=== PATIENT | male | born 1965 | race Caucasian/White ===

== ENCOUNTER 2023-09-24 10:37 | Emergency (ER) | payer OTHER, SELFPAY ==
[2023-09-24 10:55] VITALS: BP 121/72; PULSE 84; RESP 18; TEMP 36.4; O2SAT 96; BMI 27.4
== END 2023-09-24 19:55 | disposition left against medical advice (07) ==
PROVIDERS: Emergency Provider Emergency Medicine; PCP Internal Medicine
DX: R21 Rash and other nonspecific skin eruption (principal); R10.13 Epigastric pain
CPT/HCPCS: 36415; 80048; 80076; 83690; 85025; 99281; 99283

== ENCOUNTER 2025-06-15 09:11 | Outpatient (AMB) | payer MEDICARE, SELFPAY ==
--- OUTSIDE RECORDS SUMMARY | 2025-06-09 11:28 | XMS_ITS | Encounter Summary ---
Author Organization [place] [address] Care Team Providers Care Matrix Plater Name Role Phone Michael Caldwell MD Primary Care Provider [phone] Encounter Details Date Type Department Care Team (Latest Contact Info) Description 06/09/2025 11:28 AM EDT - 06/09/2025 11:59 PM EDT Hospital Encounter XRAY - [facility] [address] [place] [address] Posterior left knee pain Discharge Disposition: Home or Self Care Social History Tobacco Use Types Packs/Day Years Used Date Smoking Tobacco: Never Smokeless Tobacco: Never Alcohol Use Standard Drinks/Week Comments Not Currently 0 (1 standard drink = 0.6 oz pur e alcohol) Housing Instability Answer Date Recorde d Are you worried that in the next 2 months you may not have stable housing? No 12/08/2024 Food Access & Nutrition Answer Date Rec orded Do you have access to a vari ety of food including fruits and vegetables? No 12/08/2024 Access to Healthcare Answer Date Record ed Within the last 3 months, ho w many times did you visit the emergency department for your medical care? 1 12/08/2024 Health Literacy Answer Date Recorded How often do you need to hav e someone help you when you read instructions, pamphlets, or other written material from your doctor or pharmacy? Always 12/08/2024 Caregiver: How often do you need to have someone help you when you read instructions, pamphlets, or other written material from your doctor or pharmacy? Not on file 12/08/2024 Financial Risk Answer Date Recorded How hard is it for you to pa y for the very basics like food, housing, medical care, and air conditioning / heating? Somewhat hard 12/08/2024 Transportation Answer Date Recorded Has the lack of transportati on kept you from meetings, work, or from getting things needed for daily living? No 5 Has the lack of transportati on kept you from medical appointments or from getting medications? No 12/08/2024 Social Isolation Answer Date Recorded How often do you feel lonely or isolated from th ose around you? Rarely 12/08/2024 Food Risk Answer Date Recorded Within the past 12 months we worried whether our food would run out before we got money to buy more. Sometimes true 025 Within the past 12 months th e food we bought just didn't last and we didn't have money to get more. Never true 12/08/2024 Dependent Care Answer Date Recorded Do you need help finding or paying for care for your loved ones. For example, children's zoo caretaker or elderly care for an older adult? Yes 12/08/2024 Education Answer Date Recorded Do you think completing more education or training, like finishing a GED, going to college, or learning a trade, would be helpful for you? N/A 12/08/2024 Employment and Income Answer Date Recor ded During the last four weeks, have you been actively looking for work? No 12/08/2024 Living Situation Answer Date Recorded What is your living situation? 0 12/08/2024 Sex and Gender Information Value Date Recorded Sex Assigned at Male 12/08/2024 11:10 AM EDT Legal Sex Male 9:25 AM EST Gender Identity Male 12/08/2024 11:10 AM EDT Sexual Orientation Straight 12/08/2024 11 :10 AM EDT documented as of this encounter Medications at Time of Discharge atorvastatin (LIPITOR) 10 mg tablet Take 1 tablet (10 mg total) by mouth at bedtime. 90 each 1 06/09/2025 blood-glucose meter kit Use daily or as directed for monitoring of diabetes. 1 each 02/23/2025 diclofenac (VOLTAREN) 1 % topical gel Apply 4 gram four times daily to affected joint 100 g 06/09/2025 diclofenac (VOLTAREN) 50 mg EC tablet Take 1 tablet (50 mg total) by mouth 3 (three) times a day. Do not crush, chew, or split. 28 tablet 04/01/2025 meloxicam (MOBIC) 15 mg tablet Take 1 tablet (15 mg total) by mouth 1 (one) time each day. 30 tablet 1 04/25/2025 documented as of this encounter Discharge Disposition Disposition Code Departure Means Destination Home or Self Care documented in this encounter Plan of Treatment Upcoming Encounters Date Type Department Care Team (Late st Contact Info) Description 06/29/2025 9:45 AM EDT Office Visit General Surgery - [place] [facility] [address] [place] [phone] Jeremy Palmer, 175 [facility] [address] [place] [address] 08/03/2025 9:50 AM EST Office Visit Gastroenterology [facility] 175 [facility] 175 [facility] [address] [place] [address] Kate Moreno PA 175 [facility] [address] [place] [address] 12/12/2025 9:00 AM EDT Office Visit Adult Medicine [address] [phone] Michael Caldwell MD [address] [place] [address] Scheduled Procedures Name Priority Associated Diagnoses Date/Ti me REPAIR HERNIA INGUINAL ROBOT Recurrent right inguinal hernia documented as of this encounter Procedures Procedure Name Priority Date/Time Associated Diagnosis Comments XR KNEE 4+ VIEWS LEFT Routine 06/09/2025 11:35 AM EDT Posterior left knee pain documented in this encounter Results * XR Knee 4+ Views Left (06/09/2025 11:35 AM EDT) Anatomical Region Laterality Modality Lower Extremities, Knee Left Radiogra phic Imaging 06/09/2025 5:37 PM EDT Impressions 06/09/2025 5:39 PM EDT Very mild degenerative changes. -------- FINAL REPORT -------- Dictated By: Rachele Huntley Dictated Date: 06/09/2025 17:37 ET Assigned Physician: Rachele Huntley Reviewed and Electronically Signed By: Rachele Huntley Signed Date: 06/09/2025 17:39 ET Workstation ID: [id number] Transcribed By: Self Edit Transcribed Date: 06/09/2025 17:37 ET Narrative 06/09/2025 5:39 PM EDT EXAM: Left knee x-ray HISTORY: Posterior left knee pain. COMPARISON: 04/11/2014 VIEWS: 4 views performed, AP and tunnel views performed weightbearing. FINDINGS: Very mild tricompartment joint space narrowing. Minimal posterior patellar spurring. Spurring of the tibial spines. No acute fracture or malalignment detected. No destructive bone lesion. No significant joint effusion. Procedure Note Rachele Huntley MD - 06/09/2025 EXAM: Left knee x-ray HISTORY: Posterior left knee pain. COMPARISON: 04/11/2014 VIEWS: 4 views performed, AP and tunnel views performed weightbearing. FINDINGS: Very mild tricompartment joint space narrowing. Minimal posterior patellarspurring. Spurring of the tibial spines. No acute fracture or malalignmentdetected. No destructive bone lesion. No significant joint effusion. IMPRESSION: Very mild degenerative changes. -------- FINAL REPORT -------- Dictated By: Rachele Huntley Dictated Date: 06/09/2025 17:37 ET Assigned Physician: Rachele Huntley Reviewed and Electronically Signed By: Rachele Huntley Signed Date: 06/09/2025 17:39 ET Workstation ID: [id number] Transcribed By: Self Edit Transcribed Date: 06/09/2025 17:37 ET Andrew ALVAREZ IMG XR PROCEDURES Final Result documented in this encounter Visit Diagnoses Diagnosis Posterior left knee pain documented in this encounter Additional Health Concerns Assessment Noted Time PHQ-9 Depression Total Score: 1 12/09/19 25 11:17 AM EDT documented as of this encounter Care Teams Matrix Plater Relationship Specialty Start Date End Date Michael Caldwell MD [address] [place] [phone] PCP - General Internal Medicine 11/22/15 documented as of this encounter
[2025-06-15 09:15] VITALS: BMI 26.3
--- NOTE | 2025-06-15 09:15 | MHC.AMNUTRGE ---
VS Expanded 06/15/25 09:15 Height 5 ft 6 in Weight 163 lb 2.273 oz BMI 26.3 Intake Visit Reasons: Nutrition referral Allergies No Known Allergies Allergy (Mild, Verified 05/09/25 13:13) N/A Nutrition Presentation Details: Pt presents for MNT for Pre DM Pt has multiple questions regarding dietary modifications. Pt reports reducing on sugars and having lost about 8-10 lbs since reducing on sugar Pt is also concerned about his elevated cholesterol (LDL) BS Monitoring Most Recent Diabetes Results: Creatinine, (0.5-1.4) 1.18 mg/dL 09/24/23 BUN, (9-16) 18 mg/dL H 09/24/23 Sodium, (135-145) 143 mmol/L 09/24/23 Potassium, (3.3-5.1) 4.5 mmol/L 09/24/23 Chloride, (96-108) 110 mmol/L H 09/24/23 Carbon Dioxide, (22-29) 29 mmol/L 09/24/23 Calcium, (8.4-10.2) 9.7 mg/dL 09/24/23 AST, (5-37) 17 U/L 09/24/23 ALT, (0-40) 31 U/L 09/24/23 Total Protein, (6.5-8.0) 6.6 g/dL 09/24/23 Albumin, (3.5-5.0) 4.1 g/dL 09/24/23 LIU-Gtddmde-Bz.Jeor Equation Height: 5 ft 6 in Weight: 163 lb Resting Metabolic Rate: 1506.01 Calculated Activity Level: Mild Activity Calories Needed to Maintain Weight: 2070.76 Diagnosis Nutrition problem #1: food nutri know defi As related to (etiology) #1: diagnosis As evidenced by (sign/symptom) #1: knowledge deficit of diet Assessment & Plan Assessment & Plan (1) Pre-diabetes: Code(s): R73.03 - Prediabetes Category: Medical Plan: current wt: 74 kg ( 06/16) est kcal needs as per MSJ: 2000 est protein needs as per 1 g/kg BW: 70 est fluid needs as per 30 ml/kg BW: 2200 Recommended fiber > 12 g /day and gradually increase up to 25-28 g /day or as tolerated NA < 2300 mg/d unless otherwise specified by MD Nutrition topics discussed : Reviewed (R), Pt verbalized understanding (V) , not applicable (N/A) R, V, : Healthy Plate Method Concept: R, V, N/A: Carbohydrates: food sources of carbohydrates, relationship of carbohydrates to blood glucose, fatty liver GI health. Recommended total amount of carbohydrates per meals and snack. Differences between simple carbohydrates and complex carbohydrates R, : Lean protein foods including vegan , vegetarian sources of protein. Benefits of protein (including but not limited to healing, nutritional value , benefits in weight loss, glucose control R, : Fats : Source of fats, benefits of fats. Difference between saturated and unsaturated fats. Saturated fats and its contribution to inflammation R, V, N/A: Fiber: food sources and role of fiber in the diet (including but not limited to its role as a prebiotic, benefits in constipation, role in IBS , role in glucose control and cholesterol level) R, V, N/A: Hydration: role of hydration and prevention of dehydration or over hydration. Foods and water content. R, V, N/A: Vitamins and Minerals in foods and supplements R, V, N/A: Interpreting food labels, including serving size, macronutrients, vitamins, minerals, allergens, ingredient list , % daily value Patient Instructions: Choose low sugar beverages - see list of options follow healthy plate method when eating out and at home, choosing baked/air fried preferable Have a cup of milk with meals in place soda Coding Level of Care Code Nutr Indiv Intake (83468) Diagnoses Pre-diabetes R73.03 Time Spent (min) 30
[2025-06-15 09:46] VITALS: BMI 26.3
--- OUTSIDE RECORDS SUMMARY | 2025-06-15 10:48 | XMS_ITS | Clinical Summary ---
Author Organization [facility] Address [address] [place] [address] Care Team Providers Care Dope Dry House Operator Name Role Phone Unavailable Primary Care Provider Unavailabl e Social History Tobacco Use Types Packs/Day Years Used Date Smoking Tobacco: Never Assessed Sex and Gender Information Value Date Recorded Sex Assigned at Not on file Legal Sex Male 9:06 AM EDT Gender Identity Not on file Sexual Orientation Not on file Plan of Treatment Health Maintenance Due Date Last Done Comments Hepatitis C Virus Screening 1966 HIV Screening 1979 DTaP/Tdap/Td Vaccines (1 - Tdap) 1985 Hepatitis B Vaccines (1 of 3 - 19+ 3-dose series) 12/1985 Pneumococcal Vaccines 50+ (1 of 1 - PCV) 2016 Zoster (Shingles) Vaccine (1 of 2) 2016 COVID-19 Vaccine (1 - 2023- season) 2025
--- OUTSIDE RECORDS SUMMARY | 2025-06-15 10:48 | XMS_ITS | Encounter Summary ---
Author Organization [facility] Address [address] [place] [address] Care Team Providers Care Manager Product Design Name Role Phone Michael Caldwell MD Primary Care Provider [phone] Reason for Visit * Reason Onset Date Comments my chart appt 03/11/2025 Encounter Details Date Type Department Care Team ([facility] st Contact Info) Description 03/11/2025 Nurse Triage Adult Medicine [address] [phone] Cherelle Connors RN Social History Tobacco Use Types Packs/Day Years [...] getting things needed for daily living? No Has the lack of transportati on kept [...] care for your loved ones. For example, child support specialist or elderly care for an older adult? [...] AM EDT documented as of this encounter Progress Notes * Miriam Hermosillo RN - 03/22/2025 8:56 AM EDT Spoke with pt. He has severe rt. Lower quadrant pain 1-2 days ago , he states this pain comes and goes x 1 month. He does have his appendix, he denies severe pain at present , no fever or chills , non/v or diarrhea, stool yesterday normal and brown . He is also concerned he has a hernia but deniesand lumps or bumps in location of pain. He also has recent hx of kidney stones but denies any urinary changes . No dizziness,cp or sob . I advised if pt. Is having sever pain on and off in rt. Lowerquadrant he should be evaluated in the ER. To r/o appendicitis. Pt. Agrees and will follow up in office after evaluation * Michael Caldwell MD - 03/21/2025 6:00 PM EDT Ok to scheduled him for an in patient visit in on open slot for either myself or my care team ( margaux) as patient notes if he cannot wait for the appointment or pain worsens he is to go tot ER * Eve Blue RN - 03/21/2025 2:35 PM EDT He was instructed to go to the ER for further evaluation and treatment r/t abdominal pain and severe back pain. He then states the pain in his back is also intermittent and he does not have it at this time. He would like to be seen in the office. Reason for Disposition [1] SEVERE pain (e.g., excruciating) AND [2] present > 1 hour Answer Assessment - Initial Assessment Questions 1. LOCATION: Where does it hurt? Right lower abdomen 2. RADIATION: Does the pain shoot anywhere else? (e.g., chest, back) No radiation 3. ONSET: When did the pain begin? (Minutes, hours or days ago) 2-3 weeks 4. SUDDEN: Gradual or sudden onset? Sudden onset 5. PATTERN Does the pain come and go, or is it constant? - If it comes and goes: How long does it last? Do you have pain now? (Note: Comes and goes means the pain is intermittent. It goes away completely between bouts.) - If constant: Is it getting better, staying the same, or getting worse? (Note: Constant means the pain never goes away completely; most serious pain is constant and gets worse.) Intermittent. He states it can last all day. The last time he had the pain was within the past 2 days. 6. SEVERITY: How bad is the pain? (e.g., Scale 1-10; mild, moderate, or severe) - MILD (1-3): Doesn't interfere with normal activities, abdomen soft and not tender to touch. - MODERATE (4-7): Interferes with normal activities or awakens from sleep, abdomen tender to touch. - SEVERE (8-10): Excruciating pain, doubled over, unable to do any normal activities. He rates the pain as 10/10 when it comes. Currently he has discomfort rating 1/10 7. RECURRENT SYMPTOM: Have you ever had this type of stomach pain before? If Yes, ask: When was the last time? and What happened that time? When he used to get hernias. He has had multiple hernia. The last was 3-4 years ago. 8. CAUSE: What do you think is causing the stomach pain? Hernia or ? kidney stones as it was mentioned in his last MRI 9. RELIEVING/AGGRAVATING FACTORS: What makes it better or worse? (e.g., antacids, bending or twisting motion, bowel movement) No 10. OTHER SYMPTOMS: Do you have any other symptoms? (e.g., back pain, diarrhea, fever, urination pain, vomiting) Low back pain. He rates the back pain as 9-10/10. He is taking Tylenol? Motrin for the pain with norelief. Protocols used: Abdominal Pain - Male-A-AH * Hunter Boston - 03/21/2025 11:56 AM EDT Patient is calling back looking to speak to nurse [phone] * Jesenia Olvera RN - 03/17/2025 8:41 AM EDT [facility] * Cherelle Connors RN - 03/11/2025 12:37 PM EDT Appointment for: Benoit Barnes ([id number]) Visit type: MYCHART VIDEO VISIT ([id number]) 03/15/2025 1:00 PM (30 minutes) with ANTONIO Youssef in [facility] Patient comments: Having internal pain in previous hernia surgery site area. No redness or any visible symptoms on external skin. Concerned I may have another hernia as I have history of hernias. The appt had been cancelled as it was not booked appropriately Left vm for pt to return my call. documented in this encounter Plan of Treatment Upcoming Encounters Date Type Department Care Team (Late st Contact Info) Description 06/29/2025 9:45 AM EDT Office Visit General Surgery [facility] [address] [place] [phone] Jeremy Palmer, 175 [facility] [address] [place] [address] 08/03/2025 9:50 AM EST Office Visit Gastroenterology [facility] [address] [facility] [address] [place] [phone] Kate Moreno PA 175 [facility] [address] [place] [address] 12/12/2025 9:00 AM EDT Office Visit [address] [phone] Michael Caldwell MD [address] [place] [phone] Scheduled Procedures Name Priority Associated Diagnoses Date/Ti me REPAIR HERNIA INGUINAL ROBOT Recurrent right inguinal hernia documented as of this encounter Visit Diagnoses Not on filedocumented in this encounter Additional Health Concerns Assessment Noted Time PHQ-9 Depression Total Score: 1 12/09/19 25 11:17 AM EDT documented as of this encounter Care Teams Manager Product Design Relationship Specialty Start Date End Date Michael Caldwell MD [address] [place] [phone] PCP - General Internal Medicine 11/22/15 documented as of this encounter
--- OUTSIDE RECORDS SUMMARY | 2025-06-15 10:48 | XMS_ITS | Clinical Summary ---
Author Organization [facility] Address [address] [place] [address] Care Team Providers Care Operation Shift Supervisor Name Role Phone Unavailable Primary Care Provider Unavailabl e Medications No known medications Social History Tobacco Use Types Packs/Day Years Used Date Smoking Tobacco: Never Smokeless Tobacco: Never Tobacco Cessation:Counseling Given: Not Answered Sex and Gender Information Value Date Recorded Sex Assigned at Not on file Gender Identity Not on file Sexual Orientation Not on file Job Start Date Occupation Industry Not on file Not on file Not on file Last Filed Vital Signs Vital Sign Reading Time Taken Comments Blood Pressure 121/81 06/24/2024 10:59 AM EDT Pulse 74 06/24/2024 10:59 AM EDT Temperature 37.1 C (98.7 F) 06/24/2024 10:59 AM EDT Respiratory Rate - - Oxygen Saturation 95% 06/24/2024 10:59 AM EDT Inhaled Oxygen Concentration - - Weight 76.2 kg (168 lb) 06/24/2024 10:59 AM EDT Height 167.6 cm (5' 6 ) 06/24/2024 10:59 AM EDT Body Mass Index 27.12 06/24/2024 10:59 AM EDT Plan of Treatment Health Maintenance Due Date Last Done Comments Hepatitis B Vaccines (1 of 3 - 3-dose series) 1966 Hepatitis C Screening 1966 COVID-19 Vaccine (#1) 03/25/1967 Depression Screening 1978 BMI Counseling 1984 Preventative Health Evaluation 1984 Colon Cancer Screening (Colonoscopy) 2011 DTap / Tdap / Td (2 - Td or Tdap) 12/23/2021 12/24/2011 Influenza Vaccine (#1) 2025 2, 12/13/2021, 10/19/2019, Additional history exists Shingrix-Zoster Vaccine Completed 04/22/2018, 02/03 Pneumococcal Vaccine Aged Out No long er eligible based on patient's age to complete this topic RSV Ped < 20 months Aged Out No longe r eligible based on patient's age to complete this topic Benoit Barnes Workers Comp Self 1965 [address] [facility] [place] [address] Benoit [employer] Workers Comp Self [address] [place] [address] Benoit Barnes TPL/AUTO Self 1965 [address] [facility]] [place] [address]
--- OUTSIDE RECORDS SUMMARY | 2025-06-15 10:48 | XMS_ITS | Clinical Summary ---
Author Organization [facility] Address [address] [place] [address] Phone Care Team Providers Care Crusher Operator Name Role Phone Michael Caldwell MD Primary Care Provider [phone] Allergies Active Allergy Reactions Criticality Noted Date Comments Other 06/10/2024 Seasonal allergies Pollen Extracts 06/03/2024 Medications hydrocortison e (ANUSOL-HC) 2.5 % rectal cream Insert into the rectum 2 (two) times a day for 10 days. 30 g 1 02/02/20 25 Active baclofen (LIORESAL) 10 mg tablet Take 1 tablet (10 mg total) by mouth 3 (three) times a day for 14 days. 42 each 02/02/20 25 Active blood-glucose meter kit Use daily or as directed for monitoring of diabetes. 1 each 02/24/20 25 026 Active Additional Information Patient not taking.Reported on 04/26/2025 diclofenac (VOLTAREN) 50 mg EC tablet Take 1 tablet (50 mg total) by mouth 3 (three) times a day. Do not crush, chew, or split. 28 tablet 04/01/20 25 Active meloxicam (MOBIC) 15 mg tablet Take 1 tablet (15 mg total) by mouth 1 (one) time each day. 30 tablet 1 04/25/20 25 025 Active diclofenac (VOLTAREN) 1 % topical gel Apply 4 gram four times daily to affected joint 100 g 06/09/20 25 Active atorvastatin (LIPITOR) 10 mg tablet Take 1 tablet (10 mg total) by mouth at bedtime. 90 each 1 06/09/20 25 Active loratadine (CLARITIN) 10 mg tablet Take 1 tablet (10 mg total) by mouth 1 (one) time each day. 30 each 2 11/25/19 25 025 Discontinued fluticasone propionate (FLONASE) 50 mcg/actuation nasal spray Administer 2 sprays into each nostril 1 (one) time each day. Shake gently. Before first use, prime pump. After use, clean tip and replace cap. 16 g 2 11/25/19 025 Discontinued tiZANidine (ZANAFLEX) 2 mg tablet Take 1 tablet (2 mg total) by mouth 3 (three) times a day if needed for muscle spasms. Do not drive or operate machinery after taking medication due to potential drowsiness. 30 tablet 12/10/19 025 Discontinued atorvastatin (LIPITOR) 10 mg tablet Take 1 tablet (10 mg total) by mouth at bedtime. 90 each 1 01/04/20 25 025 Discontinued(Re order) diphenhydrAMI NE (BENADRYL) 25 mg capsule TAKE ONE CAPSULE BY MOUTH EVERY 6 HOURS NEEDED FOR ALLERGIES 90 capsule 1 02/08/20 025 Discontinued Active Problems Problem Noted Date Diagnosed Date Recurrent right inguinal hernia 04/26/2025 Prediabetes 01/03/2025 Rotator cuff syndrome of right shoulder 09/29/19 25 History of meniscal tear 06/10/2024 Rectal bleed 06/10/2024 BPH (benign prostatic hyperplasia) 02/25/2024 High triglycerides 11/02/2018 Cervical disc herniation 01/04/2016 Prolapsed internal hemorrhoids, grade 3 06/25/20 14 Hemorrhoids 06/07/2014 Allergic rhinitis 02/26/2012 Encounters Date Type Department Care Team Description 06/09/2025 11:28 AM EDT - 06/09/2025 11:59 PM EDT Hospital Encounter [facility] [address] [place] [phone] Posterior left knee pain Discharge Disposition: Home or Self Care 06/09/2025 11:00 AM EDT Office Visit Adult Medicine [place] [phone] Andrew Saab PA Hyperlipidemia, unspecified hyperlipidemia type (Primary Dx); Posterior left knee pain; Prediabetes; Need for vaccination against Streptococcus pneumoniae; Need for immunization against influenza 04/26/2025 2:45 PM EDT Office Visit [facility] 175 [facility] [address] [place] [phone] Jeremy Palmer, DO Recurrent right inguinal hernia (Primary Dx) 04/26/2025 Telephone Orthopedic Surgery [facility] [address] [phone] Esau Washington, YAHIR 04/25/2025 3:00 PM EDT Office Visit Orthopedic [facility] [address] [phone] Esau Washington, DPM Joint stiffness (Primary Dx); Lumbosacral radiculopathy; Scar tissue 04/25/2025 Telephone Gastroenterology [facility] [address] [place] [phone] Kate Moreno PA 04/12/2025 2:45 PM EDT Consult [facility] 175 [facility] [address] [place] [phone] Jeremy Palmer, DO History of bilateral inguinal hernia repair (Primary Dx) 04/05/2025 Telephone Adult Medicine [address] [phone] Michael Caldwell MD 03/30/2025 2:38 PM EDT - 03/30/2025 11:59 PM EDT Hospital Encounter CT Scan [address] [phone] Right lower quadrant abdominal pain; Lower abdominal pain Discharge Disposition: Home or Self Care 03/30/2025 10:30 AM EDT Office Visit Adult [address] [phone] Jennifer Dasilva, [employer]OCIATE Right lower quadrant abdominal pain (Primary Dx); Lower abdominal pain; Spinal stenosis of lumbar region, unspecified whether neurogenic claudication present; Rotator cuff syndrome of right shoulder; Midline low back pain without sciatica, unspecified chronicity 03/30/2025 Telephone Adult Medicine [address] [phone] Jennifer Dasilva NP 03/28/2025 Telephone Adult Medicine [address] [phone] Michael Caldwell MD 03/22/2025 11:37 AM EDT - 03/22/2025 1:33 PM EDT Emergency [facility] Emergency [address] [place] [phone] Recurrent inguinal hernia without obstruction or gangrene, unspecified laterality (Primary Dx) Discharge Disposition: Home or Self Care 03/21/2025 4:31 PM EDT - 03/21/2025 11:59 PM EDT Hospital Encounter [facility] MRI [address] [place] [phone] Joint stiffness; Scar tissue Discharge Disposition: Home or Self Care from Last 3 Months Immunizations Name Administration Dates Next Due Influenza Quadravalent, MDCK , 0.5ml, preservative free (Flucelvax) 6mo and older 07/04/2023,06/20/2022,12/13/2021,2019 Influenza Quadravalent, MDCK , 0.5ml, with preservative (Flucelvax) 6mo and older 06/18/2017 Influenza trivalent, MDCK, 0 .5mL, preservative free (Flucelvax) 6mo and older 06/09/2025 Influenza trivalent, with preservative (Fluzone; Afluria) 6mo and older 06/12/2016,06/08/2014 Pneumococcal conjugate 20 va lent (Prevnar 20, PCV 20) 2mo and older 06/09/2025 Td Tetanus diptheria (Tdvax) 7yo and older 03/15/2017 Td Tetanus diptheria, preser vative free (Tenivac) 7yo and older 03/15/2017 Tdap Tetanus diptheria acell ular pertussis (Boostrix; Adacel) 7yo and older 12/24/2011 Zoster recombinant (Shingrix ) 19yo and older 04/22/2018,02/03/2018 Surgical History Surgery Date Site/Laterality Comments HERNIA REPAIR PROCEDURE: HISTORICAL HERNIA REPAIR/ING; COMMENT: bilateral OTHER SURGICAL HISTORY PROCEDURE: ---- OTHER ----; COMMENT: right shoulder on 2005 ROTATOR CUFF REPAIR 02/13/2023 Right PROCEDURE: HISTORICAL ROTATOR CUFF REPAIR; COMMENT: Right rotator cuff repair and augmentation Family History Medical History Relation Name Comments Cataracts Aunt No Known Problems Brother Breast cancer Cousin No Known Problems Daughter 1 No Known Problems Daughter 2 No Known Problems Father No Known Problems Maternal Grandfather No Known Problems Maternal Grandmother No Known Problems Mother No Known Problems Other No Known Problems Paternal Grandfather No Known Problems Paternal Grandmother No Known Problems Sister No Known Problems Son No Known Problems Uncle Autoimmune disease Neg Hx Blindness Neg Hx Colon cancer Neg Hx Coronary artery disease Neg Hx Diabetes Neg Hx Glaucoma Neg Hx Heart attack Neg Hx Heart failure Neg Hx Hyperlipidemia Neg Hx Hypertension Neg Hx Macular degeneration Neg Hx Mental illness Neg Hx Prostate cancer Neg Hx Sleep apnea Neg Hx Strabismus Neg Hx Thyroid disease Neg Hx Relation Name Status Comments Aunt Brother Cousin Alive Daughter 1 Alive Daughter 2 Alive Father Alive Maternal Grandfather Maternal Grandmother Mother was a smoker Other Paternal Grandfather Paternal Grandmother Sister Alive DM Son Alive Uncle Social History Tobacco Use Types Packs/Day Years Used Date Smoking Tobacco: Never Smokeless Tobacco: Never Tobacco Cessation:Counseling Given: Not Answered Alcohol Use Standard Drinks/Week Comments Not Currently [...] Record ed Within the last 3 months, rene valdez many times did you visit the emergency [...] care for your loved ones. For example, children teacher or elderly care for an older adult? [...] Orientation Straight 12/08/2024 11 :10 AM EDT Obstetrics History Last Filed Vital Signs Vital Sign Reading Time Taken Comments Blood Pressure 104/60 06/09/2025 10:56 AM EDT Pulse 66 06/09/2025 10:56 AM EDT Temperature 36.3 C (97.4 F) 06/09/2025 10:56 AM EDT Respiratory Rate 14 03/30/2025 10:14 AM EDT Oxygen Saturation 98% 06/09/2025 10:56 AM EDT Inhaled Oxygen Concentration - - Weight 75.1 kg (165 lb 8 oz) 06/09/2025 10:56 AM EDT Height 167.6 cm (5' 5.98 ) 06/09/2025 10:56 AM E DT Body Mass Index 26.73 06/09/2025 10:56 AM EDT Plan of Treatment Upcoming Encounters Date Type Department Care Team (Late st Contact Info) Description 06/29/2025 9:45 AM EDT Office Visit General Surgery - [place] [facility] [address] [place] [phone] Jeremy Palmer DO 175 [facility] [address] [place] [address] 08/03/2025 9:50 AM EST Office Visit Gastroenterology - [place] [address] [place] [address] [facility] [address] [place] [phone] Kate Moreno PA 175 [facility] [address] [place] [address] 12/12/2025 9:00 AM EDT Office Visit Adult Medicine [address] [phone] Michael Caldwell MD [address] [place] [address] Scheduled Procedures Name Priority Associated Diagnoses Date/Ti me REPAIR HERNIA INGUINAL ROBOT Recurrent right inguinal hernia Health Maintenance Due Date Last Done Comments Hepatitis B Vaccines (1 of 3 - 19+ 3-dose series) 1985 HIV Screening 08/31/2022 Medicare Annual Wellness Visit 08/31/2022 COVID-19 Vaccine ( season) 2025 07/04/2023, 02/27/2022, 08/23/2021, Additional history exists Social Influencers of Health Screening 12/08/2025 12/08/2024, 12/25/2023 DTaP,Tdap,and Td Vaccines (4 - Td or Tdap) 03/15/2027 03/15/2017, 03/15/2017, 12/24/2011 Colorectal Cancer Screening: Colonoscopy 06/08/2029 06/08/2024, 06/08/2024 Cholesterol Screening (Lipid Panel) 06/09/2030 06/09/2025, 12/10/2024, 10/30/2023, Additional history exists RSV Immunization Adult Patients (1 - 1-dose 75+ series) 2041 Zoster Vaccines Completed 04/22/2018, 02/03/2018 Hepatitis C Screening Completed 12/13/2021 Depression Screening Completed 12/08/2024, 12/25/19 Influenza Vaccine Discontinued 06/09/2025, , 06/20/2022, Additional history exists Pneumococcal Vaccine: 50+ Years Completed 06/09/2025 HIB Vaccines Aged Out No longer eligi ble based on patient's age to complete this topic HPV Vaccines Aged Out No longer eligi ble based on patient's age to complete this topic Hepatitis A Vaccines Aged Out No long er eligible based on patient's age to complete this topic IPV Vaccines Aged Out No longer eligi ble based on patient's age to complete this topic MMR Vaccines Aged Out No longer eligi ble based on patient's age to complete this topic Meningococcal ACWY Vaccine Aged Out N o longer eligible based on patient's age to complete this topic Meningococcal B Vaccine Aged Out No l onger eligible based on patient's age to complete this topic RSV Immunization Patients Under 20 months Aged Out No longer eligible based on patient's age to complete this topic Varicella Vaccines Aged Out No longer eligible based on patient's age to complete this topic Procedures Procedure Name Priority Date/Time Associated Diagnosis Comments HEMOGLOBIN A1C Routine 06/09/2025 11:57 AM EDT Prediabetes LIPID PANEL WITH REFLEX TO DIRECT LDL Routine 06/09/2025 11:57 AM EDT Hyperlipidemia, unspecified hyperlipidemia type XR KNEE 4+ VIEWS LEFT Routine 06/09/2025 11:35 AM EDT Posterior left knee pain CT ABDOMEN PELVIS WO CONTRAST Routine 03/30/2025 2:54 PM EDT Right lower quadrant abdominal pain Lower abdominal pain CBC WITH AUTO DIFFERENTIAL STAT 03/22/2025 11:39 AM EDT LIPASE STAT 03/22/2025 11:39 AM EDT COMPREHENSIVE METABOLIC PANEL STAT 03/22/2025 11:39 AM EDT CBC AND DIFFERENTIAL STAT 03/22/2025 11:39 AM EDT MR FOOT WO CONTRAST LEFT Routine 03/21/2025 5:01 PM EDT Joint stiffness Scar tissue COLONOSCOPY Routine 06/08/2024 DEPRESSION SCREENING Routine 12/25/2023 HEPATITIS C SCREENING Routine 12/13/2021 from Last 3 Months or Most Recently Relevant to Health Maintenance Results * (ABNORMAL) Lipid panel with reflex to direct LDL (06/09/2025 11:57 AM EDT) Cholesterol 218(H) 0 - 200 mg/dL LAB CHEMISTRY METHOD 06/09/2025 2:57 PM EDT [facility] Triglycerides 341(H) 0 - 150 mg/dL LAB CHEMISTRY METHOD 06/09/2025 2:57 PM EDT [facility] HDL 38(L) >=40 mg/dL LAB CHEMISTRY METHOD 06/09/2025 2:57 PM EDT [facility] LDL Calculated 112(H) 0 - 100 mg/dL LAB CHEMISTRY METHOD 06/09/2025 2:57 PM EDT [facility] Comment:Estimated LDL Calcul ated using equation: Total cholesterol - HDL cholesterol - (Triglycerides/5) VLDL Cholesterol Andre 68.2 mg/dL LAB CHEMISTRY METHOD 06/09/2025 2:57 PM EDT [facility] Non HDL Chol. (LDL+VLDL) 180(H) <145 mg/dL LAB CHEMISTRY METHOD 06/09/2025 2:57 PM EDT [facility] Chol/HDL Ratio 5.7(H) 0.0 - 4.4 LAB CHEMISTRY METHOD 06/09/2025 2:57 PM EDT [facility] Blood Venous blood specimen / Unknown Venipuncture / Unknown 06/09/2025 11:57 AM EDT 06/09/2025 11:57 AM EDT Andrwe ALVAREZ LAB BLOOD ORDERABLES Fi nal Result Performing Organization Address [facility]/ZIP Co de Phone Number [facility] [address] [place] [address], [place] [phone] * Hemoglobin A1c (06/09/2025 11:57 AM EDT) [facility] Signature Hemoglobin A1C 6.0 <6.5 % LAB CHEMISTRY METHOD 06/09/2025 9:58 PM EDT [facility] Mean Bld Glu Estim. 126 mg/dL LAB CHEMISTRY METHOD 06/09/2025 9:58 PM EDT [facility] Blood Venous blood specimen / Unknown Venipuncture / Unknown 06/09/2025 11:57 AM EDT 06/09/2025 11:57 AM EDT Andrew Saab LA LAB BLOOD ORDERABLES Fi nal Result [facility] [address] [place] [address], [place] [phone] * XR Knee 4+ Views Left (06/09/2025 [...] Signed Date: 06/09/2025 17:39 ET Workstation ID: [id number] Transcribed By: Self Edit Transcribed Date: 06/09/2025 [...] Signed Date: 06/09/2025 17:39 ET Workstation ID: [id number] Transcribed By: Self Edit Transcribed Date: 06/09/2025 17:37 ET Andrew ALVAREZ IMG XR PROCEDURES Final Result * CT Abdomen Pelvis wo Contrast (03/30/2025 2:54 PM EDT) Anatomical Region Laterality Modality Body Computed Tomogra phy 03/30/2025 3:02 PM EDT Impressions 03/30/2025 3:32 PM EDT No evidence of acute abdominopelvic pathology. Nonobstructing bilateral renal calculi. -------- FINAL REPORT -------- Dictated By: Thuy Poole Dictated Date: 03/30/2025 15:02 ET Assigned Physician: Thuy Poole Reviewed and Electronically Signed By: Thuy Poole Signed Date: 03/30/2025 15:32 ET Workstation ID: [id number] Transcribed By: Self Edit Transcribed Date: 03/30/2025 15:02 ET Narrative 03/30/2025 3:[address] ABDOMEN AND PELVIS WITHOUT CONTRAST HISTORY: Abdominal pain. Hernia suspected. Flank pain. Kidney stone suspected. PROCEDURE: Multiple axial images are obtained through the abdomen and pelvis. Oral contrast was administered. PRIOR STUDIES: CT abdomen pelvis with contrast 02/12/2024. FINDINGS: Liver: Unremarkable. Pancreas: Unremarkable. Kidneys: 0.3 cm calculus midpole right kidney. 0.6 x 0.7 cm calculus lower pole right kidney. 0.5 cm calculus lower pole left kidney. No hydronephrosis of either kidney. Adrenal glands: Unremarkable. Spleen: Unremarkable Gallbladder: Unremarkable. Appendix: Unremarkable. GI tract: There are diverticuli scattered in the colon. Vasculature: Abdominal aorta is normal in caliber. There is mild atherosclerosis. Bladder: Unremarkable. Reproductive organs: Seminal vesicles are unremarkable. There are prostatic calcifications. Prostate gland is moderately enlarged. Abdominal wall: No ventral hernia. Lymph nodes: Unremarkable. Bones: There is curvature and degenerative change of the spine. There is severe disc space narrowing with mild endplate spurring and disc desiccation at L5-S1. Lung bases: Minor scarring. Procedure Note Thuy Poole MD - 03/30/2025 CT ABDOMEN AND PELVIS WITHOUT CONTRAST HISTORY: Abdominal pain. Hernia suspected. Flank pain. Kidney stonesuspected. PROCEDURE: Multiple axial images are obtained through the abdomen andpelvis. Oral contrast was administered. PRIOR STUDIES: CT abdomen pelvis with contrast 02/12/2024. FINDINGS: Liver: Unremarkable. Pancreas: Unremarkable. Kidneys: 0.3 cm calculus midpole right kidney. 0.6 x 0.7 cm calculus lowerpole right kidney. 0.5 cm calculus lower pole left kidney. Nohydronephrosis of either kidney. Adrenal glands: Unremarkable. Spleen: Unremarkable Gallbladder: Unremarkable. Appendix: Unremarkable. GI tract: There are diverticuli scattered in the colon. Vasculature: Abdominal aorta is normal in caliber. There is mildatherosclerosis. Bladder: Unremarkable. Reproductive organs: Seminal vesicles are unremarkable. There areprostatic calcifications. Prostate gland is moderately enlarged. Abdominal wall: No ventral hernia. Lymph nodes: Unremarkable. Bones: There is curvature and degenerative change of the spine. There issevere disc space narrowing with mild endplate spurring and discdesiccation at L5-S1. Lung bases: Minor scarring. IMPRESSION: No evidence of acute abdominopelvic pathology. Nonobstructing bilateral renal calculi. -------- FINAL REPORT -------- Dictated By: Thuy Poole Dictated Date: 03/30/2025 15:02 ET Assigned Physician: Thuy Poole Reviewed and Electronically Signed By: Thuy Poole Signed Date: 03/30/2025 15:32 ET Workstation ID: [id number] Transcribed By: Self Edit Transcribed Date: 03/30/2025 15:02 ET us Jennifer Dasilva [employer] IMG CT PROCEDURES Final Resul t * CBC auto differential (03/22/2025 11:39 AM EDT) WBC 4.9 4.8 - 10.8 K/[facility] LAB HEMETOLOGY METHOD 03/22/2025 12:50 PM EDT [facility] RBC 5.20 4.50 - 5.50 M/[facility] LAB HEMETOLOGY METHOD 03/22/2025 12:50 PM EDT [facility] Hemoglobin 14.2 13.5 - 17.5 g/dL LAB HEMETOLOGY METHOD 03/22/2025 12:50 PM EDT [facility] Hematocrit 43.5 42.0 - 54.0 % LAB HEMETOLOGY METHOD 03/22/2025 12:50 PM EDT [facility] MCV 83.2 79.0 - 98.0 FL LAB HEMETOLOGY METHOD 03/22/2025 12:50 PM EDT [facility] MCH 27.2 27.0 - 32.0 pcg LAB HEMETOLOGY METHOD 03/22/2025 12:50 PM EDT [facility] MCHC 32.6 32.0 - 37.0 g/dL LAB HEMETOLOGY METHOD 03/22/2025 12:50 PM EDT [facility] RDW 13.7 11.0 - 15.0 % LAB HEMETOLOGY METHOD 03/22/2025 12:50 PM EDT [facility] Platelets 181 130 - 400 K/mcL LAB HEMETOLOGY METHOD 03/22/2025 12:50 PM EDT [facility] MPV 10.8 7.0 - 11.0 FL LAB HEMETOLOGY METHOD 03/22/2025 12:50 PM EDT [facility] NRBC 0.0 <1.0 % LAB HEMETOLOGY METHOD 03/22/2025 12:50 PM EDT [facility] NRBC Absolute 0.00 <0.10 K/mcL LAB HEMETOLOGY METHOD 03/22/2025 12:50 PM [facility] Neutrophils Relative 58.9 % LAB HEMETOLOGY METHOD 03/22[facility]25 [facility] Lymphocytes Relative 30.3 % LAB HEMETOLOGY METHOD 03/22/2025 12:50 PM EDT [facility] Monocytes Relative 9.0 % LAB HEMETOLOGY METHOD 03/22/2025 12:50 PM EDT [facility] Eosinophils Relative 0.8 % LAB HEMETOLOGY METHOD 03/22/2025 12:50 PM EDT [facility] Basophils Relative 0.6 % LAB HEMETOLOGY METHOD 03/22/2025 12:50 PM EDT [facility] Immature Granulocytes Relative 0.4 % LAB HEMETOLOGY METHOD 03/22/2025 12:50 PM EDT [facility] Neutrophils Absolute 2.87 1.50 - 7.00 K/mcL LAB HEMETOLOGY METHOD 03/22/2025 12:50 PM EDT [facility] Lymphocytes Absolute 1.48 1.00 - 5.00 K/mcL LAB HEMETOLOGY METHOD 03/22/2025 12:50 PM EDT [facility] Monocytes Absolute 0.44 0.20 - 1.00 K/mcL LAB HEMETOLOGY METHOD 03/22/2025 12:50 PM EDT [facility] Eosinophils Absolute 0.04 0.00 - 0.50 K/[facility] LAB HEMETOLOGY METHOD 03/22/2025 12:50 PM EDT [facility] Basophils Absolute 0.03 0.00 - 0.20 K/mcL LAB HEMETOLOGY METHOD 03/22/2025 12:50 PM EDT [facility] Immature Granulocytes Absolute 0.02 0.00 - 0.03 K/[facility] LAB HEMETOLOGY METHOD 03/22/2025 12:50 PM EDT [facility] Blood Venous blood specimen / Unknown Venipuncture / Unknown 03/22/2025 11:39 AM EDT 03/22/2025 12:43 PM EDT us Yury ALVAREZ LAB BLOOD ORDERABLES Final Re sult [facility] [address] [place] [address], * Lipase (03/22/2025 11:39 AM EDT) Lipase 23 13 - 75 unit/L LAB CHEMISTRY METHOD 03/22/2025 1:15 PM EDT [facility] Blood Venous blood specimen / Unknown Venipuncture / Unknown 03/22/2025 11:39 AM EDT 03/22/2025 12:43 PM EDT us Yury ALVAREZ LAB BLOOD ORDERABLES Final Re sult [facility] [address] [place] [address], [place] [phone] * Comprehensive metabolic panel (03/22/2025 11:39 AM EDT) Sodium 139 133 - 145 mmol/L LAB CHEMISTRY METHOD 03/22/2025 1:15 PM [facility] Potassium 4.5 3.5 - 5.5 mmol/L LAB CHEMISTRY METHOD 03/22/2025 1:15 PM [facility] Chloride 109 96 - 110 mmol/L LAB CHEMISTRY METHOD 03/22/2025 1:15 PM [facility] CO2 26 21 - 32 mmol/L LAB CHEMISTRY METHOD 03/22/2025 1:15 PM [facility] Anion Gap 4 3 - 11 LAB CHEMISTRY METHOD 03/22/2025 1:15 PM [facility] Glucose 96 70 - 100 mg/dL LAB CHEMISTRY METHOD 03/22/2025 1:15 PM [facility] BUN 20 5 - 25 mg/dL LAB CHEMISTRY METHOD 03/22/2025 1:15 PM [facility] Creatinine 0.91 0.70 - 1.30 mg/dL LAB CHEMISTRY METHOD 03/22/2025 1:15 PM [facility] eGFR 98 >=60 mL/min/1. 73m2 LAB CHEMISTRY METHOD 03/22/2025 1:15 PM [facility] Comment:Calculation based on the Chronic Kidney Disease Epidemiology Collaboration (CKD-EPI) equation refit without adjustment for race. BUN/Creatinine Ratio 22.0 LAB CHEMISTRY METHOD 03/22/2025 1:15 PM [facility] Calcium 8.8 8.5 - 10.5 mg/dL LAB CHEMISTRY METHOD 03/22/2025 1:15 PM EDT [facility] AST (SGOT) 11 10 - 42 unit/L LAB CHEMISTRY METHOD 03/22/2025 1:15 PM EDT [facility] ALT (SGPT) 32 10 - 60 unit/L LAB CHEMISTRY METHOD 03/22/2025 1:15 PM EDT [facility] Alkaline Phosphatase 73 42 - 121 unit/L LAB CHEMISTRY METHOD 03/22/2025 1:15 PM EDT [facility] Total Protein 6.4 6.0 - 8.0 g/dL LAB CHEMISTRY METHOD 03/22/2025 1:15 PM EDT [facility] Albumin 3.6 3.2 - 5.0 g/dL LAB CHEMISTRY METHOD 03/22/2025 1:15 PM EDT [facility] Total Bilirubin 0.5 0.0 - 1.4 mg/dL LAB CHEMISTRY METHOD 03/22/2025 1:15 PM EDT [facility] Blood Venous blood specimen / Unknown Venipuncture / Unknown 03/22/2025 11:39 AM EDT 03/22/2025 12:43 PM EDT Yury ALVAREZ LAB BLOOD ORDERABLES Final Re sult [facility] [address] [place] [address], * MR Foot wo Contrast Left (03/21/2025 5:01 PM EDT) Anatomical Region Laterality Modality Lower Extremities, Foot Left Magnetic Resonance 03/21/2025 5:33 PM EDT Impressions 03/21/2025 5:43 PM EDT No acute fracture. No acute ligament or tendon injury. Healed fracture deformity of the 2nd metatarsal. -------- FINAL REPORT -------- Dictated By: GERARD SUAREZ Dictated Date: 03/21/2025 17:33 ET Assigned Physician: GERARD SUAREZ Reviewed and Electronically Signed By: GERARD SUAREZ Signed Date: 03/21/2025 17:43 ET Workstation ID: [id number] Transcribed By: Self Edit Transcribed Date: 03/21/2025 17:33 ET Narrative 03/21/2025 5:43 PM EDT PROCEDURE: Left foot MRI INDICATION: Pain TECHNIQUE: Multiplanar, multisequence MRI of the left foot Without contrast. COMPARISON: No priors available. FINDINGS: No acute fracture or suspicious marrow replacing lesion. Chronic healed deformity of the 2nd metatarsal. Joint spaces are preserved. No focal cartilage defects or joint effusions. Lisfranc ligament complex and intermetatarsal ligaments are intact. Ankle ligaments are intact. Achilles tendon and plantar fascia are normal. Peroneal tendons are intact. Posterior tibial tendinosis without tear. Flexor tendons are intact. Anterior tibial tendon and extensor tendons are intact. Muscle signal is normal. No mass or fluid collection. Procedure Note Gerard Suarez MD - 03/21/2025 PROCEDURE: Left foot MRI INDICATION: Pain TECHNIQUE: Multiplanar, multisequence MRI of the left foot Withoutcontrast. COMPARISON: No priors available. FINDINGS: No acute fracture or suspicious marrow replacing lesion. Chronic healeddeformity of the 2nd metatarsal. Joint spaces are preserved. No focal cartilage defects or jointeffusions. Lisfranc ligament complex and intermetatarsal ligaments are intact. Ankle ligaments are intact. Achilles tendon and plantar fascia are normal. Peroneal tendons are intact. Posterior tibial tendinosis without tear. Flexor tendons are intact. Anterior tibial tendon and extensor tendons are intact. Muscle signal is normal. No mass or fluid collection. IMPRESSION: No acute fracture. No acute ligament or tendon injury. Healed fracture deformity of the 2nd metatarsal. -------- FINAL REPORT -------- Dictated By: GERARD SUAREZ Dictated Date: 03/21/2025 17:33 ET Assigned Physician: GERARD SUAREZ Reviewed and Electronically Signed By: GERARD SUAREZ Signed Date: 03/21/2025 17:43 ET Workstation ID: [id number] Transcribed By: Self Edit Transcribed Date: 03/21/2025 17:33 ET Esau Washington DPM IMG MRI PROCEDURES Final Result * Colonoscopy (06/08/2024) Pathologist [facility] Colonoscopy No interpreta tion,abstr acted Anatomical Region Laterality Modality Other Historical Provider HEALTH MAINTENANCE Final Result * Depression Screening (12/25/2023) Pathologist [facility] Depression Screening Abstracted Historical Provider HEALTH MAINTENANCE Final Result * Hepatitis C Screening (12/13/2021) Pathologist [facility] Hepatitis C Screening Abstracted Historical Provider HEALTH MAINTENANCE Final Result from Last 3 Months or Most Recently Relevant to Health Maintenance Insurance [facility] MEDICARE MEDICARE [place] GENERIC Care Teams Crusher Operator Relationship Specialty Start Date End Date Michael Caldwell MD [address] [place] [phone] PCP - General Internal Medicine 11/22/15
== END 2025-06-15 09:40 | disposition home or self-care (01) ==
LOC: HO.ENCR 09:12
PROVIDERS: PCP Internal Medicine; Visit Provider Dietitian, Registered
DX: R73.03 Prediabetes (principal)

== ENCOUNTER → 2025-06-15 09:11 | Outpatient (BNVA) | payer MEDICARE, SELFPAY | PROVIDERS: PCP Internal Medicine; Visit Provider Dietitian, Registered | DX: R73.03 Prediabetes (principal); Z71.3 Dietary counseling and surveillance | CPT/HCPCS: 97802 ==

== ENCOUNTER 2025-06-20 13:21 | Outpatient (AMB) | payer MEDICARE, SELFPAY ==
--- NOTE | 2025-06-20 13:21 | HO.SPINEOV ---
Intake Visit Reasons: LBP Intake Note: Mr. Barnes is here today c/o Low back pain. Shipping And Receiving Associate Required: No Allergies No Known Allergies Allergy (Mild, Verified 05/09/25 13:13) N/A Assessment & Plan Assessment & Plan (1) Lumbago without sciatica: Code(s): M54.50 - Low back pain, unspecified Category: Medical Plan Dear Dr. Washington, Thank you for referring Benoit to our office today. He is a pleasant 59-year-old male who comes in today for evaluation of low back pain. 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 He states that he was working on the tractor and it sounds like the tire slipped off, causing the tractor to fall onto him. He has had low back pain ever since, that has been worsening over the course of the last 2 years. He also recounts a long history of heavy physical labor, working on vehicles, performing farm labor, and picking / loading tobacco. He denies any shooting pain down his lower extremities, and denies any numbness/tingling associated with the pain. He does report that years ago he attempted 1 cortisone injection which was very helpful at the time, but eventually did wear off. In terms of treatment since then, he has attempted a plethora of [id number] medications including Tylenol, NSAIDs, pain patches/creams and pain gels. Nothing seems to provide meaningful relief for him. He states that prolonged ambulation primarily exacerbates his low back pain. He cited an example of this, and states that he is unable to take his children to [address] [place] anymore due to the severe low back pain he feels after ambulating about 10-15 minutes. This causes him to need to sit down and rest to alleviate the pain. PMH: Hemorrhoids, high triglycerides, BPH, allergic rhinitis, history of meniscal tear, right-sided rotator cuff syndrome, prediabetic. Reported history on incoming medical records of cervical disc herniation. History of right-sided inguinal hernia repair. Social hx: The patient does not smoke, reports no substance use. Does not drink alcohol. Medications: Atorvastatin, diclofenac, meloxicam. Allergies: NKDA. Physical exam: The patient has full 5/5 strength in his upper and lower extremities. He ambulates well with no assistive devices. His gait is non spastic and nonantalgic. He is able to rise from a seated position without difficulty and gets up onto the examination table without much issue. He has no significant sensational deficits reported on examination. His bilateral patellar reflexes are 1+ hypoactive, but the rest of his reflexes are 2+ normal. (-) Mace's, (-) clonus, (-) bilateral straight leg raise. Imaging review: MRI of the lumbar spine completed at [facility] shows posterior disc bulging at L3-4, L4-5 with moderate central canal stenosis at both levels. There is severe left-sided lateral recess stenosis at L3-4, and moderate-severe lateral recess steonsis at this level as well. There is severe bilateral foraminal stenosis at L4-5, worse on the left. There is severe DDD and moderate right sided foraminal stenosis L5-S1. Impression: Benoit is a pleasant 59-year-old male who comes in today for evaluation of chronic low back pain that seems to have worsened over the last few years. He denies any radicular component associated with the pain. It sounds like his primary problem is related to the compression seen on MRI imaging at L3-4, L4-5. I would like to refer the patient to our colleagues in pain management for evaluation regarding injections at these levels. I would like to follow up with him in clinic thereafter to see if he was able to obtain meaningful relief of his pain with injections. He may be able to sustain himself with conservative measures for the foreseeable future if the injections are beneficial. If he only obtains fleeting relief we may need to re-evalaute him to see if lumbar decompression would beneficial. For the time being I will send in a short supply of Gabapentin at the patients request to help mitigate some of his pain symptoms. Thank you for allowing us to care for your patient. The total time spent with this visit with this patient was 47 minutes reviewing history, physical exam, MRI imaging review, and implementation of treatment plan or further diagnostic testing Rashel España MD,PhD [facility] Medications: New gabapentin 300 mg PO TID PRN 30 caps 0RF nerve pain Coding Level of Care Code New Pt Level 4 (14489) Diagnoses Lumbago without sciatica M54.50
--- OUTSIDE RECORDS SUMMARY | 2025-06-20 14:50 | XMS_ITS | Clinical Summary ---
Author Organization [facility] Address [address] [place] [address] Care Team Providers Care Customer Solutions Specialist Name Role Phone Unavailable Primary Care Provider [...] Workers Comp Self 1965 [address] [facility] [id number] Benoit Barnes Workers Comp Self [address] [place] [place] [id number] Benoit Barnes TPL/AUTO Self 1965 [address] [facility] [place] [id number]
== END 2025-06-20 13:56 | disposition home or self-care (01) ==
LOC: HO.HNS 13:21
PROVIDERS: PCP Internal Medicine; Referring Provider Podiatrist Foot & Ankle Surgery; Visit Provider Physician Assistant
DX: M54.50 Low back pain, unspecified (principal)
CPT/HCPCS: 99204

== ENCOUNTER → 2025-06-20 13:21 | Outpatient (BNVA) | payer MEDICARE, SELFPAY | PROVIDERS: PCP Internal Medicine; Referring Provider Podiatrist Foot & Ankle Surgery; Visit Provider Physician Assistant | DX: M54.50 Low back pain, unspecified (principal); G89.29 Other chronic pain | CPT/HCPCS: 99202 ==

== ENCOUNTER 2025-07-29 09:41 | Outpatient (AMB) | payer MEDICARE, SELFPAY ==
--- NOTE | 2025-07-29 09:59 | MHC.OFFVIS ---
Vital Signs 07/29/25 10:09 Height 5 ft 6 in Weight 160 lb 2 oz BMI 25.8 BP 126/73 Blood Pressure Location Rt brachial Position Sitting Pulse 75 Pulse Source Pulse Oximeter Pulse Oximetry (%) 100 Oxygen Delivery Method Room Air Intake Visit Reasons: Lumbar Radiculopathy Intake Note: Pain today 03/31 Vp Human Resources Required: No Accompanied by: Self / Same As Patient Allergies No Known Allergies Allergy (Mild, Verified 05/09/25 13:13) N/A HPI Comments Details: The patient is a 59-year-old male presenting with chronic low back pain. 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 The pain is described as radiating to both legs, with occasional numbness and tingling, although these symptoms are not constant. The patient reports that bending forward causes pressure but not pain, while bending backward is associated with arthritis-related pain. The patient has undergone multiple imaging, including xrays and MRIs, which have shown degenerative changes in the lumbar spine, including moderate spinal stenosis at L3-L4 and L4-L5, and severe foraminal stenosis at L4-L5, worse on the left side. Patient underwent Neurosurgical evaluation at [facility] and was referred to our office for injections prior to surgical consideration. The patient has tried various medications, including gabapentin, diclofenac, meloxicam, and hfbx-roa-koupmjs topical and oral pain relievers, without significant relief. He reports that the pain limits his ability to walk for more than 10 to 15 minutes, after which he needs to sit down to alleviate the pain. The patient denies any history of diabetes, smoking, or alcohol use, and reports no allergies. - Onset: Approximately 20 years ago following a tractor accident - Quality: Constant burning, aching, shooting, throbbing pain with occasional numbness and tingling - Location: Lower back, radiating to both legs - Exacerbating factors: Bending backward, prolonged walking - Relieving factors: Sitting down after walking, activity modifications, heat therapy, oral and topical medications-minimal relief - Interference: Affects sleep, daily activities, and mobility - Affect: Pain impacts daily activities and mobility - Analgesia: Tried gabapentin, diclofenac, meloxicam, Tylenol, pain patches, creams, and gels without significant relief - Adverse Effects: None reported - Activities of Daily Living: Limited walking ability, affects sleep and daily activities - Aberrant Drug Related Behaviors: None reported [facility] Medical History Rotator cuff syndrome of right shoulder Rectal bleed History of meniscal tear Allergic rhinitis Cervical disc herniation BPH (benign prostatic hyperplasia) High triglycerides Prolapsed internal hemorrhoids, grade 3 Hemorrhoids Social History Alcohol intake: never Patient Tobacco Use Status: Never used Tobacco Review of Systems Const Details: - Musculoskeletal: Reports chronic low back pain, radiating to both legs, front and lateral aspects of BLE - Neurological: Denies consistent numbness or tingling, reports occasional symptoms - General: Denies diabetes, smoking, alcohol use, and allergies All systems reviewed & are unremarkable except as noted in HPI and below Physical Exam Vital Signs: Last Vital Signs Pulse 75 07/29/25 10:09 BP 126/73 07/29/25 10:09 Pulse Ox 100 07/29/25 10:09 Oxygen Delivery Method Room Air 07/29/25 10:09 BMI result Body Mass Index 25.8 General: Appears afebrile. Alert and oriented. Mood and affect appropriate. Follows and participates in conversation appropriately. Respiratory effort is unlabored. No cough. Able to transition from sit to stand unassisted. Increased back pain from getting up from sitting position. Ambulates with bilaterally normal heel strike and toe off. Reports increase in back pain with heel standing bilaterally. General: Yes no CVA tenderness Back/Spine/Pelvis Other: Limited lumbar ROM due to pain. Lumbar extension and flexion reproduce moderate to severe pain. Demonstrates 5/5 strength of quadriceps bilaterally as well as flexion/dorsiflexion of bilateral feet against resistance. 2+ pedal pulses bilaterally. Straight leg rise with dorsiflexion positive bilaterally. +1 patellar and achilles reflexes bilaterally. Facet loading test positive bilaterally. West sign, Samson?s and Stinchfield tests are negative bilaterally. No groin pain with I/E hip rotations. Valsalva maneuver negative. Back: no CVA tenderness Cervical Spine: cervical ROM normal and No Cervical spine tenderness Thoracic/Lumbar Spine: thoracic and lumbar spine normal to inspection, No Thoracic/lumbar spine scar(s), Lasegue's sign positive bilateral and diffuse, pain with thoraco-lumbar ROM, paraspinal muscle tenderness, thoraco-lumbar ROM limited, No thoracic spinal tenderness and lumbar spinal tenderness at L3, at L4 and at L5 Sacroiliac joints: bilaterally tender to palpation Extrem General: Yes capillary refill normal, Yes no clubbing, cyanosis or edema and Yes no calf tenderness Results Reviewed Results Reviewed: Assessment & Plan Assessment & Plan (1) Lumbar radiculopathy: Code(s): M54.16 - Radiculopathy, lumbar region Category: Medical (2) Lumbosacral spondylosis: Code(s): M47.817 - Spondylosis without myelopathy or radiculopathy, lumbosacral region Category: Medical (3) Lumbar degenerative disc disease: Code(s): M51.36 - Other intervertebral disc degeneration, lumbar region Category: Medical (4) Lumbar spinal stenosis: Code(s): M48.061 - Spinal stenosis, lumbar region without neurogenic claudication Category: Medical Plan The plan includes administering Bilateral L4-L5 TFESI with local and fluoroscopy to alleviate pain associated with spinal stenosis related symptoms. We will evaluate need for L3-L4 level after initial injection. Expectations, risks and benefits were reviewed. The patient will follow up with the pain management team and neurosurgery as needed, and the injections will be scheduled once insurance approval is obtained. Continue gabapentin. All questions and concerns have been answered and patient agreed with the treatment plan. Follow up after injections and sooner as needed. Patient was informed and verbally consented to the use of an ambient scribe for clinic note documentation during this visit. Coding Level of Care Code New Pt Level 4 (11734) Diagnoses Lumbar radiculopathy M54.16 Lumbosacral spondylosis M47.817 Lumbar degenerative disc disease M51.36 Lumbar spinal stenosis M48.061
[2025-07-29 10:09] VITALS: BP 126/73; PULSE 75; O2SAT 100; BMI 25.8
--- OUTSIDE RECORDS SUMMARY | 2025-07-29 11:02 | XMS_ITS | Clinical Summary ---
Author Organization [facility] Address [address] [place] [address] Care Team Providers Care Typewriter Aligner Name Role Phone Unavailable Primary Care Provider [...] Workers Comp Self 1965 [address] [place] [address] Benoit Barnes Workers Comp Self 1965 [address] [place] [place] [address] Benoit Barnes TPL/AUTO Self 1965 [address] [place] [address]
--- OUTSIDE RECORDS SUMMARY | 2025-07-29 11:02 | XMS_ITS | Encounter Summary ---
Author Organization [facility] Address [address] [place] [address] Care Team Providers Care Machining Technician Name Role Phone Michael Caldwell MD Primary Care Provider [phone] Reason for Visit * Reason Onset Date Comments my chart appt 03/11/2025 Encounter Details Date Type Department Care Team ([facility] st Contact Info) Description 03/11/2025 Nurse Triage Adult Medicine [address] [phone] Cherelle Connors RN Social History Tobacco Use [...] for your loved ones. For example, child care coordinator or elderly care for an older adult? [...] Date Recorded What is your living situation? Unrecognized valu e 12/08/2024 Sex and Gender Information Value Date [...] sever pain on and off in rt. Lower quadrant he should be evaluated in the ER. [...] calling back looking to speak to nurse [phone] * Jesenia Olvera RN - 03/17/2025 8:41 AM EDT [facility] * Cherelle Connors RN - 03/11/2025 12:37 PM EDT Appointment for: Benoit Barnes ([id number]) Visit type: MYCHART VIDEO VISIT ([id number]) 03/15/2025 1:00 PM (30 minutes) with ANTONIO Youssef in [facility] Patient comments: Having internal pain in previous [...] Care Team (Late st Contact Info) Description 08/03/2025 9:50 AM EST Office Visit Gastroenterology - [address] [place] [phone] Kaet Moreno PA [address] [place] [phone] 08/12/2025 10:45 AM EST Office Visit Orthopedics [address] [phone] Grady Graff PA [address] [place] [phone] 12/12/2025 9:00 AM EDT Office Visit [address] [phone] Michael Caldwell MD [address] [place] [phone] Scheduled Procedures Name Priority Associated Diagnoses Date/Ti me REPAIR HERNIA INGUINAL ROBOT Recurrent right inguinal hernia documented as of this encounter Visit Diagnoses Not on filedocumented in this encounter Additional Health Concerns Assessment Noted Time PHQ-9 Depression Total Score: 1 12/09/19 25 11:17 AM EDT documented as of this encounter Care Teams Machining Technician Relationship Specialty Start Date End Date Michael Caldwell MD [address] [place] [phone] PCP - General Internal Medicine 11/22/15 documented as of this encounter
--- OUTSIDE RECORDS SUMMARY | 2025-07-29 11:02 | XMS_ITS | Encounter Summary ---
Author Organization [facility] Address [address] [place] [address] Care Team Providers Care Presiding Steward Name Role Phone Michael Caldwell MD Primary Care Provider [phone] Reason for Visit * Reason Onset Date Comments Results 07/07/2025 Fitting for DME 07/07/2025 Encounter Details Date Type Department Care Team ([facility] Contact Info) Description 07/07/2025 Telephone Adult Medicine [address] [phone] Andrew Saab PA [address] [place] [address] Social History Tobacco Use Types Packs/Day Years [...] ed Within the last 3 months, rene w many times did you visit the [...] for your loved ones. For example, children's service worker or elderly care for an older adult? [...] as of this encounter Progress Notes * Nilda Jamison MA - 07/27/2025 1:12 PM EST Dx added and refaxed. vf * Dyan Menendez - 07/27/2025 12:01 PM EST Daughter is calling. [facility] needs a diagnosis on the script for this. Please resend with this information. Can she please be updated when this is done. * Nilda Jamison MA - 07/26/2025 1:50 PM EST Script faxed to [facility]. vf * Soo New - 07/26/2025 10:57 AM EST Patient's daughter Camila is calling states, [facility] does not accept patient insurance. Requestingscript be faxed over [facility] @ [phone]. Please advise. * Nilda Jamison MA - 07/19/2025 3:38 PM EDT Fax to Mar[facility] as request. Spoke with patient to let him know script was sent. vf * ANTONIO Diehl - 07/19/2025 2:23 PM EDT Okay I printed out a order he can bring to a medical supply store * Nilda Jamison MA - 07/19/2025 1:55 PM EDT Spoke with patient, gave him this message. He states his knee is still very painful and the injection only helped a little bit. Patient states he is trying to support his family, he needs to work, hehas 2 kids, money is tight and he would really appreciate it if a script can be sent in so the insurance will cover it even if its just for a simple brace. vf * ANTONIO Diehl - 07/18/2025 2:40 PM EDT I dont think he nees a knee brace beyond something OTC. How is he doing following injection * Nilda Jamison MA - 07/18/2025 9:16 AM EDT Please review. vf * Dyan Menendez - 07/15/2025 4:20 PM EDT DME REQUEST Name of Product: knee brace, left knee Specific information about product not sure what type of brace he might need # Needed 1 Reason patient is asking for this supply? Knee pain Have you received this supply before? If yes , when?: No Have you discussed the need for this supply with a provider at a recent visit? If yes, with who andkwame? No, discussed knee pain with PCP team, and Ortho. PCP team was messaged last week and there has been no response. When completed: Fax to other office/MD/pharmacy at fax Sarah Daniel [phone] Who is requested? Patient / patient's daughter Is this a fax request? Have you told the patient it will take 7-10 days for completion of this request? Yes * Dyan Menendez - 07/07/2025 10:01 AM EDT Daughter is calling for the patient. She asked for the knee x ray results, they do not have access right now to the portal. Result message was read to daughter. She is asking if patient should see a Surveyor Instrument Assistant? Please review and refer if needed. She is also asking if he might be able to use a brace on his knee? documented in this encounter Plan of Treatment Upcoming Encounters Date Type Department Care Team (Late st Contact Info) Description 08/03/2025 9:50 AM EST Office Visit Gastroenterology - [address] [facility] [address] [place] [phone] Kate Moreno PA [address] [facility] [address] [place] [address] 08/12/2025 10:45 AM EST Office Visit Orthopedics - [address] [phone] Grady Graff PA [address] [place] [phone] 12/12/2025 9:00 AM EDT Office Visit [facility] [place] [address] [phone] Michael Caldwell MD [address] [place] [address] Scheduled Procedures Name Priority Associated Diagnoses Date/Ti me REPAIR HERNIA INGUINAL ROBOT Recurrent right inguinal hernia documented as of this encounter Visit Diagnoses Diagnosis Posterior left knee pain- Primary documented in this encounter Orders General Supply Count Last Ordered Date First Or dered Date KNEE BRACE 1 07/19/2025 documented in this encounter Additional Health Concerns Assessment Noted Time PHQ-9 Depression Total Score: 1 12/09/19 25 11:17 AM EDT documented as of this encounter Care Teams Presiding Steward Relationship Specialty Start Date End Date Michael Caldwell MD [address] [place] [address] PCP - General Internal Medicine 11/22/15 documented as of this encounter
--- OUTSIDE RECORDS SUMMARY | 2025-07-29 11:03 | XMS_ITS | Clinical Summary ---
Author Organization [email or web address] Building Address [address] [place] [address] Phone Care Team Providers Care Mri Specialist Name Role Phone Michael Caldwell MD Primary Care Provider [phone] Allergies Active Allergy Reactions Criticality Noted Date Comments Other 06/10/2024 Seasonal allergies Pollen Extracts 06/03/2024 Medications hydrocortisone (ANUSOL-HC) 2.5 % rectal cream Insert into the rectum 2 (two) times a day for 10 days. 30 g 1 5 Active baclofen (LIORESAL) 10 mg tablet Take 1 tablet (10 mg total) by mouth 3 (three) times a day for 14 days. 42 each 5 Active blood-glucose meter kit Use daily or as directed for monitoring of diabetes. 1 each 5 02/24/20 26 Active diclofenac (VOLTAREN) 50 mg EC tablet Take 1 tablet (50 mg total) by mouth 3 (three) times a day. Do not crush, chew, or split. 28 tablet 5 Active diclofenac (VOLTAREN) 1 % topical gel Apply 4 gram four times daily to affected joint 100 g 5 Active atorvastatin (LIPITOR) 10 mg tablet Take 1 tablet (10 mg total) by mouth at bedtime. 90 each 1 5 Active gabapentin (NEURONTIN) 300 mg capsule TAKE 1 CAPSULE BY MOUTH THREE TIMES A DAY NEEDED FOR NERVE PAIN Active Hospital, Clinic, or Other Facility Administered Medication Ordered Dose Route Frequency Start Date End Date Status lidocaine (XYLOCAINE) 1 % injection 4 mLIndications:Primary osteoarthritis of left knee 4 mL Once PRN Procedure 07/15/2025 07/15/2025 Ended methylPREDNISolone acetate (DEPO-Medrol) injection 80 mgIndications:Primary osteoarthritis of left knee 80 mg Once PRN Procedure 07/15/2025 07/15/2025 Ended Active Problems Problem Noted Date Diagnosed Date Recurrent right inguinal hernia 04/26/2025 Prediabetes 01/03/2025 Rotator cuff syndrome of right shoulder 09/29/19 25 History of meniscal tear 06/10/2024 Rectal bleed 06/10/2024 BPH (benign prostatic hyperplasia) 02/25/2024 High triglycerides 11/02/2018 Cervical disc herniation 01/04/2016 Prolapsed internal hemorrhoids, grade 3 06/25/20 14 Hemorrhoids 06/07/2014 Allergic rhinitis 02/26/2012 Encounters Date Type Department Care Team Description 07/15/2025 10:00 AM EDT Office Visit Orthopedics [address] [phone] Grady Graff PA Primary osteoarthritis of left knee (Primary Dx) 07/07/2025 Telephone Adult Medicine [address] [phone] Andrew Saab PA 06/09/2025 11:28 AM EDT - 06/09/2025 11:59 PM EDT Hospital Encounter [address] [phone] Posterior left knee pain Discharge Disposition: Home or Self Care 06/09/2025 11:00 AM EDT Office Visit Adult Medicine [address] [phone] Andrew Saab PA Hyperlipidemia, unspecified hyperlipidemia type (Primary Dx); Posterior left knee pain; Prediabetes; Need for vaccination against Streptococcus pneumoniae; Need for immunization against influenza from Last 3 Months Immunizations Immunization Administration Dates Next Due Influenza Quadravalent, MDCK [...] for your loved ones. For example, child development instructor or elderly care for an older adult? [...] F) 06/09/2025 10:56 AM EDT Respiratory Rate 16 07/15/2025 9:45 AM EDT Oxygen Saturation 98% 06/09/2025 10:56 AM EDT Inhaled Oxygen Concentration - - Weight 74.8 kg (165 lb) 07/15/2025 9:45 AM EDT Height 167.6 cm (5' 6 ) 07/15/2025 9:45 AM EDT Body Mass Index 26.63 07/15/2025 9:45 AM EDT Plan of Treatment Upcoming Encounters Date Type Department Care Team (Late st Contact Info) Description 08/03/2025 9:50 AM EST Office Visit Gastroenterology - [address] [place] [phone] Kate Moreno PA [address] [phone] 08/12/2025 10:45 AM EST Office Visit Orthopedics - [address] [phone] Grady Graff PA [address] [place] [phone] 12/12/2025 9:00 AM EDT Office Visit Adult Medicine [address] [place] [phone] Michael Caldwell MD [address] [place] [phone] Scheduled Procedures Name Priority Associated Diagnoses Date/Ti [...] Procedure Name Priority Date/Time Associated Diagnosis Comments CO ARTHROCENTESIS/ASPI RATION/INJECTION MAJOR JOINT/BURSA W/O U/S GUIDANCE Routine 07/15/2025 10:00 AM EDT Primary osteoarthritis of left knee HEMOGLOBIN A1C Routine 06/09/2025 11:57 AM EDT Prediabetes LIPID PANEL WITH REFLEX TO DIRECT LDL Routine 06/09/2025 11:57 AM EDT Hyperlipidemia, unspecified hyperlipidemia type XR KNEE 4+ VIEWS LEFT Routine 06/09/2025 11:35 AM EDT Posterior left knee pain HM COLONOSCOPY Routine 06/08/2024 DEPRESSION SCREENING Routine 12/25/2023 HEPATITIS C SCREENING Routine 12/13/2021 from Last 3 Months or Most Recently Relevant to Health Maintenance Results * CO ARTHROCENTESIS/ASPIRATION/INJECTION MAJOR JOINT/BURSA W/O U/S GUIDANCE (07/15/2025 10:00 AM EDT) Grady Bright PA - 07/15/2025 10:00 AM EDT ANTONIO Diehl 07/15/2025 10:23 AM L Inj/Asp: L knee Indications: pain Details: 22 G needle, anterolateral approach Medications: 4 mL lidocaine 1 %; 80 mg methylPREDNISolone acetate 80 mg/mL Informed Consent: Site: Knee Laterality: Left Relevant images/test results available and reviewed: yes Health status cleared: Yes Procedure/treatment, purpose, treatment alternatives, risks/potential complications and benefits explained: yes Risk/complications/benefits details: Risks include but are not limited to: The treatment may not accomplish the desired results. Additionally bleeding, infection, damage to tendon, nerve, cartilage, muscle; thinning or lightening of the skin in the area of injection; flushing or redness of the face, elevated blood pressure or blood sugar, allergic reaction, rash, increased pain Benefits include relief of inflammation and pain Patient questions answered: yes Patient agrees, verbalizes understanding, and wants to proceed: yes Consent given by: Patient Informed consent discussion completed by Physician/JOLYNN with patient: Verbal Pre-procedure timeout performed: yes us Grady ALVAREZ IN CLINIC/BEDSIDE ORDERABLES Fin al Result * (ABNORMAL) Lipid panel with reflex to direct LDL (06/09/2025 11:57 AM EDT) Cholesterol 218(H) 0 - 200 mg/dL LAB CHEMISTRY METHOD 06/09/2025 2:57 PM EDT [facility] Triglycerides 341(H) 0 - 150 mg/dL LAB CHEMISTRY METHOD 06/09/2025 2:57 PM EDT [facility] HDL 38(L) >=40 mg/dL LAB CHEMISTRY METHOD 06/09/2025 2:57 PM EDT [facility] LDL Calculated 112(H) 0 - 100 mg/dL LAB CHEMISTRY METHOD 06/09/2025 2:57 PM EDT [facility] Comment:Estimated LDL Calcul ated using equation: Total cholesterol - HDL cholesterol - (Triglycerides/5) VLDL Cholesterol Andre 68.2 mg/dL LAB CHEMISTRY METHOD 06/09/2025 2:57 PM EDT [facility] Non HDL Chol. (LDL+VLDL) 180(H) <145 mg/dL LAB CHEMISTRY METHOD 06/09/2025 2:57 PM EDT [facility] Chol/HDL Ratio 5.7(H) 0.0 - 4.4 LAB CHEMISTRY METHOD 06/09/2025 2:57 PM T [facility] Blood Venous blood specimen / Unknown Venipuncture / Unknown 06/09/2025 11:57 AM EDT 06/09/2025 11:57 AM EDT us Andrew Cooperaya PA LAB BLOOD ORDERABLES Fi nal Result Performing Organization Address [facility]/ZIP Co de Phone Number [facility] [address] [place] [address], [place] [phone] * Hemoglobin A1c (06/09/2025 11:57 AM EDT) Hemoglobin A1C 6.0 <6.5 % LAB CHEMISTRY METHOD 06/09/2025 9:58 PM EDT [facility] Mean Bld Glu Estim. 126 mg/dL LAB CHEMISTRY METHOD 06/09/2025 9:58 PM EDT [facility] Blood Venous blood specimen / Unknown Venipuncture / Unknown 06/09/2025 11:57 AM EDT 06/09/2025 11:57 AM EDT [facility] Fi nal Result Performing Organization Address [facility] Co de Phone Number [facility] [address] [place] [address], [place] [phone] * XR Knee 4+ Views Left (06/09/2025 [...] Signed Date: 06/09/2025 17:39 ET Workstation ID: [id number] Transcribed By: Self Edit Transcribed Date: 06/09/2025 [...] -------- FINAL REPORT -------- Dictated By: Rachele Hnutley Dictated Date: 06/09/2025 17:37 ET Assigned Physician: Rachele Huntley Reviewed and Electronically Signed By: Rachele Huntley Signed Date: 06/09/2025 17:39 ET Workstation ID: [id number] Transcribed By: Self Edit Transcribed Date: 06/09/2025 17:37 ET Andrew ALVAREZ IMG XR PROCEDURES Final Result * Colonoscopy (06/08/2024) [facility] Colonoscopy No interpreta tion,abstr acted Anatomical Region Laterality Modality Other [facility] Provider HEALTH MAINTENANCE Final Result * Depression Screening (12/25/2023) [facility] Depression Screening Abstracted Historical Provider HEALTH MAINTENANCE Final Result * Hepatitis C Screening (12/13/2021) [facility] Hepatitis C Screening Abstracted [facility] Provider HEALTH MAINTENANCE Final Result from Last 3 Months or Most Recently Relevant to Health Maintenance Insurance [employer] MEDICARE GENERIC MEDICAID - [place] GENERIC Care Teams Mri Specialist Relationship Specialty Start Date End Date Michael Caldwell MD [address] [place] [phone] PCP - General Internal Medicine 11/22/15
== END 2025-07-29 10:37 | disposition home or self-care (01) ==
LOC: HO.PMC 09:42
PROVIDERS: PCP Internal Medicine; Referring Provider Physician Assistant; Visit Provider Nurse Practitioner Family
DX: M54.16 Radiculopathy, lumbar region (principal); M47.817 Spondylosis without myelopathy or radiculopathy, lumbosacral region; M51.369 Other intervertebral disc degeneration, lumbar region without mention of lumbar back pain or lower extremity pain; M48.061 Spinal stenosis, lumbar region without neurogenic claudication
CPT/HCPCS: 99204

== ENCOUNTER → 2025-07-29 09:41 | Outpatient (BNVA) | payer MEDICARE, SELFPAY | PROVIDERS: PCP Internal Medicine; Referring Provider Physician Assistant; Visit Provider Nurse Practitioner Family | DX: M54.16 Radiculopathy, lumbar region (principal); M47.817 Spondylosis without myelopathy or radiculopathy, lumbosacral region; M51.360 Other intervertebral disc degeneration, lumbar region with discogenic back pain only; M48.061 Spinal stenosis, lumbar region without neurogenic claudication | CPT/HCPCS: 99202 ==

== ENCOUNTER 2025-08-11 10:04 | Outpatient (AMB) | payer MEDICARE, SELFPAY ==
[2025-08-11 10:14] VITALS: BMI 25.6
--- NOTE | 2025-08-11 10:14 | MHC.AMNUTRGE ---
VS Expanded 08/11/25 10:14 Height 5 ft 6 in Weight 158 lb 8 oz BMI 25.6 Intake Visit Reasons: Nutrition Allergies No Known Allergies Allergy (Mild, Verified 05/09/25 13:13) N/A Nutrition Presentation Details: Pt presents for MNT f/u for pre DM food frequency fruit: 1/d fish : 1-2 x/wk Vegetables: 4 times a week Dairy 3 times a day Patient reports working on following healthy plate method. Patient acknowledges that often may have ultra processed foods due to convenience BS Monitoring Most Recent Diabetes Results: Creatinine, (0.5-1.4) 1.18 mg/dL 09/24/23 BUN, (9-16) 18 mg/dL H 09/24/23 Sodium, (135-145) 143 mmol/L 09/24/23 Potassium, (3.3-5.1) 4.5 mmol/L 09/24/23 Chloride, (96-108) 110 mmol/L H 09/24/23 Carbon Dioxide, (22-29) 29 mmol/L 09/24/23 Calcium, (8.4-10.2) 9.7 mg/dL 09/24/23 AST, (5-37) 17 U/L 09/24/23 ALT, (0-40) 31 U/L 09/24/23 Total Protein, (6.5-8.0) 6.6 g/dL 09/24/23 Albumin, (3.5-5.0) 4.1 g/dL 09/24/23 PFSH Medical History Rotator cuff syndrome of right shoulder Rectal bleed History of meniscal tear Allergic rhinitis Cervical disc herniation BPH (benign prostatic hyperplasia) High triglycerides Prolapsed internal hemorrhoids, grade 3 Hemorrhoids Social History Alcohol intake: never Patient Tobacco Use Status: Never used Tobacco Assessment & Plan Assessment & Plan (1) Pre-diabetes: Code(s): R73.03 - Prediabetes Category: Medical Plan: current wt: 74 kg ( 06/16),72 kg (08/16) est kcal needs as per MSJ: 2000 est protein needs as per 1 g/kg BW: 70 est fluid needs as per 30 ml/kg BW: 2200 Recommended fiber > 12 g /day and gradually increase up to 25-28 g /day or as tolerated NA < 2300 mg/d unless otherwise specified by MD Nutrition topics discussed : Reviewed (R), Pt verbalized understanding (V) , not applicable (N/A) R, V, : Healthy Plate Method Concept: R, V, N/A: Carbohydrates: food sources of carbohydrates, relationship of carbohydrates to blood glucose, fatty liver GI health. Recommended total amount of carbohydrates per meals and snack. Differences between simple carbohydrates and complex carbohydrates R, : Lean protein foods including vegan , vegetarian sources of protein. Benefits of protein (including but not limited to healing, nutritional value , benefits in weight loss, glucose control R, : Fats : Source of fats, benefits of fats. Difference between saturated and unsaturated fats. Saturated fats and its contribution to inflammation R, V, N/A: Fiber: food sources and role of fiber in the diet (including but not limited to its role as a prebiotic, benefits in constipation, role in IBS , role in glucose control and cholesterol level) R, V, N/A: Hydration: role of hydration and prevention of dehydration or over hydration. Foods and water content. R, V, N/A: Vitamins and Minerals in foods and supplements R, V, N/A: repreting food labels, including serving size, macronutrients, vitamins, minerals, allergens, ingredient list , % daily value Reviewed quick healthy meal options to make at home, reducing on ultra processed foods Patient Instructions: Continue working on following healthy plate method Consider air frying, using slow cook herbs Choose baked food items verses pre fried, reducing on ultra processed food intake Coding Level of Care Code Nutr Indiv Subseq (38240) Diagnoses Pre-diabetes R73.03 Time Spent (min) 30
--- OUTSIDE RECORDS SUMMARY | 2025-08-11 14:45 | XMS_ITS | Clinical Summary ---
Author Organization [facility] Address [address] [place] [address] Care Team Providers Care Costume Specialist Name Role Phone Unavailable Primary Care [...] Workers Comp Self 1965 [address] [facility] [place] [address] Benoit Barnes Workers Comp Self 1965 [address] [facility] [place] [address] Benoit Barnes TPL/AUTO Self 1965 [address] [facility] [place] [address]
== END 2025-08-11 10:33 | disposition home or self-care (01) ==
LOC: HO.ENCR 10:05
PROVIDERS: PCP Internal Medicine; Visit Provider Dietitian, Registered
DX: R73.03 Prediabetes (principal)

== ENCOUNTER → 2025-08-11 10:04 | Outpatient (BNVA) | payer MEDICARE, SELFPAY | PROVIDERS: PCP Internal Medicine; Visit Provider Dietitian, Registered | DX: R73.03 Prediabetes (principal) | CPT/HCPCS: 97803 ==